=== PATIENT | male | born 1940 | race African-American/Black ===

== ENCOUNTER 2017-04-14 00:31 | Emergency (ER) | payer MEDICARE ==
[~2017-04-14] VITALS: Ht 188 cm; Wt 75.0 kg
[~2017-04-14 00:31] MED LIST: ACYC400T PO; COUM10TA PO; ROSU10 PO
[2017-04-14 00:36] VITALS: BP 115/58; PULSE 62; RESP 16; TEMP 98.4; O2SAT 99
[2017-04-14 03:28] LABS: AUTOMATED NEUTROPHIL # 2.6 TH/MM3 (1.8-7.7); BASOPHIL % 0.6 % (0.0-2.0); EOSINOPHIL # 0.1 TH/MM3 (0-0.4); EOSINOPHIL % 2.2 % (0.0-4.0); HEMATOCRIT 36.3 % (39.0-51.0); HEMO FLAGS DIFF FINAL; LYMPH % 28.7 % (9.0-44.0); LYMPHOCYTE # 1.4 TH/MM3 (1.0-4.8); MEAN CELL VOLUME 85.8 FL (80.0-100.0); MEAN CORPUSCULAR HGB CONC 32.6 % (32.0-36.0); MONO % 15.6 % (0.0-8.0); NEUT % 52.9 % (16.0-70.0); PLATELET COUNT 139 TH/MM3 (150-450); RED BLOOD COUNT 4.23 MIL/MM3 (4.50-5.90); RED CELL DISTRIBUTION WIDTH 16.3 % (11.6-17.2)
[2017-04-14 03:35] LABS: INTERNATIONAL NORMALIZED RATIO 1.4 RATIO; PROTHROMBIN TIME - PATIENT 15.2 SEC (9.8-11.6)
[2017-04-14 03:44] LABS: POTASSIUM 3.9 MEQ/L (3.5-5.1)
--- NOTE | 2017-04-14 03:45 | PD ---
HPI Chief Complaint: Medication Refill Request Time Seen by Provider: 03:34 Travel History International Travel<30 days: No Contact w/Intl Traveler<30days: No Traveled to known affect area: No History of Present Illness HPI 77-year-old male came to the emergency room to get Lovenox shot. 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 However he ran out of his Coumadin 3 days ago. His last dose of Coumadin was 2 days ago. Patient is under the impression that once he gets Lovenox shot it will keep him anticoagulated for 3-4 days at which point he can be seen by his primary care and repeat Coumadin will be ordered. However it did inform him about the Coumadin being almost 24 hours. Vital signs were stable. Doesn't appear to be in any distress. PFSH Past Medical History Narrative Medical List of his past medical, surgical, social and family history is reviewed from the nursing note. Hx Anticoagulant Therapy: Yes Cancer: No Cardiovascular Problems: Yes High Cholesterol: Yes Diminished Hearing: Yes (NEEDS A HEARING AID) Endocrine: No Gastrointestinal Disorders: No Genitourinary: No Immune Disorder: No Implanted Vascular Access Dvce: No Musculoskeletal: No Neurologic: No Psychiatric: No Reproductive: No Respiratory: Yes (LEFT LUNG COLLAPSE 2008) Past Surgical History Cardiac Surgery: Yes (aortic valve replacement) Valve Replacement: Yes (1999) Other Surgery: Yes (TURP 2007) Social History Alcohol Use: No Tobacco Use: No Substance Use: No Allergies-Medications (Allergen,Severity, Reaction): Coded Allergies: No Known Allergies (Verified , 07/19/16) Comments No known drug allergies. Reported Meds & Prescriptions Reported Meds & Active Scripts Active Acyclovir 400 mg (Acyclovir) 400 Mg Tab 1 Tab PO TID Reported Crestor (Rosuvastatin Calcium) 10 Mg Tab 10 Mg PO Q HS Coumadin 10 mg (Warfarin Sodium) 10 Mg Tab 10 Mg PO hold medication until see PCP on Saturday08/11/2012 Narrative Medication List of his home medications reviewed from the nursing note. Review of Systems Except as stated in HPI: all other systems reviewed are Neg Physical Exam Narrative GENERAL: Awake, alert, no obvious distress SKIN: Focused skin assessment warm/dry. HEAD: Atraumatic. Normocephalic. EYES: Pupils equal and round. No scleral icterus. No injection or drainage. ENT: No nasal bleeding or discharge. Mucous membranes pink and moist. NECK: Trachea midline. No JVD. CARDIOVASCULAR: Regular rate and rhythm. No murmur appreciated. RESPIRATORY: No accessory muscle use. Clear to auscultation. Breath sounds equal bilaterally. GASTROINTESTINAL: Abdomen soft, non-tender, nondistended. Hepatic and splenic margins not palpable. MUSCULOSKELETAL: No obvious deformities. No clubbing. No cyanosis. No edema. NEUROLOGICAL: Awake and alert. No obvious cranial nerve deficits. Motor grossly within normal limits. Normal speech. PSYCHIATRIC: Appropriate mood and affect; insight and judgment normal. Data Data Last Documented VS Vital Signs Date Time Temp Pulse Resp B/P Pulse Ox O2 Delivery O2 Flow Rate FiO2 04/14/17 00:36 98.4 62 16 115/58 99 Room Air Orders Complete Blood Count With Diff (04/14/17 02:19) Basic Metabolic Panel (Bmp) (04/14/17 02:19) Prothrombin Time / Inr (Pt) (04/14/17 02:19) Enoxaparin Inj (Lovenox Inj) (04/14/17 05:00) Labs Laboratory Tests Test 04/14/17 02:19 White Blood Count 5.0 TH/MM3 Red Blood Count 4.23 MIL/MM3 Hemoglobin 11.8 GM/DL Hematocrit 36.3 % Mean Corpuscular Volume 85.8 FL Mean Corpuscular Hemoglobin 28.0 PG Mean Corpuscular Hemoglobin 32.6 % Concent Red Cell Distribution Width 16.3 % Platelet Count 139 TH/MM3 Mean Platelet Volume 8.4 FL Neutrophils (%) (Auto) 52.9 % Lymphocytes (%) (Auto) 28.7 % Monocytes (%) (Auto) 15.6 % Eosinophils (%) (Auto) 2.2 % Basophils (%) (Auto) 0.6 % Neutrophils # (Auto) 2.6 TH/MM3 Lymphocytes # (Auto) 1.4 TH/MM3 Monocytes # (Auto) 0.8 TH/MM3 Eosinophils # (Auto) 0.1 TH/MM3 Basophils # (Auto) 0.0 TH/MM3 CBC Comment DIFF FINAL Differential Comment Prothrombin Time 15.2 SEC Prothromb Time International 1.4 RATIO Ratio Sodium Level 141 MEQ/L Potassium Level 3.9 MEQ/L Chloride Level 108 MEQ/L Carbon Dioxide Level 29.0 MEQ/L Anion Gap 4 MEQ/L Blood Urea Nitrogen 21 MG/DL Creatinine 1.33 MG/DL Estimat Glomerular Filtration 64 ML/MIN Rate Random Glucose 88 MG/DL Calcium Level 8.9 MG/DL [facility] Medical Decision Making Medical Screen Exam Complete: Yes Emergency Medical Condition: Yes Medical Record Reviewed: Yes Differential Diagnosis 3:43 AM blood test results were ordered. CBC and chemistry are back. Awaiting for the INR to come back. Narrative Course 3:44 AM CBC is within normal limits. INR is subtherapeutic. Awaiting for the chemistry resolved. If his renal function is okay he'll get a dose Lovenox 4:33 AM renal function seems to be okay. I'll give him a dose of Lovenox. Procedures EKG Prior to Arrival: No Diagnosis Primary Impression: Medication refill Referrals: Primary Care Physician Additional Instructions: Please follow-up with your primary care Saturday to get the Coumadin prescription. Follow-up with your primary care from there on to get the INR stabilized and therapeutic. Disposition: 01 DISCHARGE HOME Condition: Stable Patrick Martinez MD Apr 14, 2017 03:45
[2017-04-14] MEDS ORDERED: ENOXAPARIN SODIUM 100 MG/ML SYRINGE SQ ONE (05:00)
== END 2017-04-14 05:22 | disposition home or self-care (01) ==
LOC: NEPE 00:31
DX: Z76.0 Encounter for issue of repeat prescription (principal); E78.00 Pure hypercholesterolemia, unspecified; Z79.01 Long term (current) use of anticoagulants; Z95.2 Presence of prosthetic heart valve; Z79.899 Other long term (current) drug therapy
CPT/HCPCS: 80048; 85025; 85610; 96372; 99284; J1650